=== PATIENT | female | born 1945 | race Caucasian/White ===

== ENCOUNTER 2017-08-31 17:30 | Inpatient (IN) | payer SELFPAY ==
[~2017-08-31] VITALS: Ht 157.5 cm; Wt 58.3 kg
[2017-08-31 19:21] LABS: BASOPHILS % 0.9 % (0.0-2.0); EOSINOPHILS % 8.7 % (0.0-5.0); HEMATOCRIT. 39.6 % (36.0-48.0); HEMOGLOBIN. 13.5 g/dL (12.0-16.0); LYMPHOCYTES % 36.4 % (20.0-50.0); MEAN CORPUSCULAR HEMOGLOBIN 30.1 pg (28.0-32.0); MEAN CORPUSCULAR VOLUME 88.4 fL (81.0-99.0); MEAN PLATELET VOLUME 7.5 fl (7.4-10.4); MONOCYTES % 6.7 % (2.0-8.0); NEUTROPHILS % 47.3 % (40.0-76.0); PLATELET 255 x1000/uL (130-400); RED BLOOD CELL COUNT 4.48 mill/uL (4.2-5.4); RED CELL DISTRIBUTION WIDTH 13.9 % (11.6-14.6)
[2017-08-31 19:27] LABS: PROTHROMBIN TIME 10.9 sec (9.4-11.6)
[2017-08-31 19:32] LABS: CHLORIDE 109 mEq/L (98-107)
[2017-08-31 19:36] LABS: TROPONIN I < 0.02 ng/mL (0.00-0.04)
[2017-08-31] MEDS ORDERED: ACETAMINOPHEN 325MG TABLET PO ONE (20:00)
[2017-08-31] MEDS ORDERED: ONDANSETRON HCL 4MG/2ML VIAL IV PRN (22:09)
[2017-08-31 22:16] LABS: CREATINE KINASE MB FRACTION 1.1 ng/mL (0.5-3.6)
[2017-08-31 23:14] VITALS: BP 119/71
[2017-08-31 23:15] VITALS: BP 119/71
[2017-08-31 23:34] VITALS: BP 124/66
[2017-08-31] MEDS: DEXT 5%/LACTATED RINGERS 1,000 ML IV SCH (23:44)
[2017-08-31 23:45] VITALS: BP 114/60
[2017-09-01] VITALS (51 sets, daily range): BP systolic 95–154; BP diastolic 42–80
[2017-09-01] MEDS ORDERED: NICARDIPINE 100 MG in SODIUM CHLORIDE 0.9% 60 ML IV PRN ×4
[2017-09-01 05:50] LABS: BASOPHILS % 1.2 % (0.0-2.0); EOSINOPHILS % 13.4 % (0.0-5.0); HEMATOCRIT. 38.2 % (36.0-48.0); HEMOGLOBIN. 12.9 g/dL (12.0-16.0); LYMPHOCYTES % 46.1 % (20.0-50.0); MEAN CORPUSCULAR HEMOGLOBIN 30.4 pg (28.0-32.0); MEAN CORPUSCULAR VOLUME 89.7 fL (81.0-99.0); MONOCYTES % 7.4 % (2.0-8.0); NEUTROPHILS % 31.9 % (40.0-76.0); PLATELET 260 x1000/uL (130-400); RED BLOOD CELL COUNT 4.26 mill/uL (4.2-5.4); RED CELL DISTRIBUTION WIDTH 13.7 % (11.6-14.6)
[2017-09-01 06:31] LABS: CREATINE KINASE 60 IU/L (26-192); CREATINE KINASE MB FRACTION 0.9 ng/mL (0.5-3.6); HDL CHOLESTEROL 45 mg/dL (40-59); LDL CHOLESTEROL 136 mg/dL (5-100); TROPONIN I < 0.02 ng/mL (0.00-0.04)
[2017-09-01] MEDS: SODIUM CHLORIDE 0.9% INJ 3ML FLUSH IVF SCH ×3 (07:01→22:21)
[2017-09-01] MEDS ORDERED: LORA10TA7 PO (08:49)
[2017-09-01] MEDS ORDERED: PROM6.25 PO (08:49)
[2017-09-01 08:55] LABS: CLARITY URINE CLOUDY (CLEAR); COLOR URINE YELLOW (YELLOW); KETONES URINE NEGATIVE (NEGATIVE); LEUKOCYTE ESTERASE URINE 1+ (NEGATIVE); NITRITE URINE NEGATIVE (NEGATIVE); OCCULT BLOOD URINE NEGATIVE (NEGATIVE); PH URINE 7.5 (4.5-8.0); PROTEIN URINE NEGATIVE (NEGATIVE); SPECIFIC GRAVITY URINE 1.015 (1.005-1.030); UROBILINOGEN URINE 0.2 E.U./dL (0.2-1.0)
[2017-09-01] MEDS ORDERED: IPRATROPIUM/ALBUTEROL 0.5-3(2.5)MG/3ML NEB HHN PRN (09:00)
[2017-09-01 10:09] LABS: *AMPHETAMINES SCREEN URINE NEGATIVE (NEGATIVE); *BARBITURATES SCREEN URINE NEGATIVE (NEGATIVE); *BENZODIAZEPINES SCREEN URINE NEGATIVE (NEGATIVE); *COCAINE SCREEN URINE NEGATIVE (NEGATIVE); CANNABINOID URINE SCREEN NEGATIVE (NEGATIVE); METHADONE URINE SCREEN NEGATIVE (NEGATIVE); OPIATES URINE SCREEN NEGATIVE (NEGATIVE); PHENCYCLIDINE URINE SCREEN NEGATIVE (NEGATIVE)
[2017-09-01] MEDS ORDERED: DEXTROSE 50% WATER 50ML SYRINGE IV PRN (12:45)
[2017-09-01 15:41] LABS: CREATINE KINASE 58 IU/L (26-192); CREATINE KINASE MB FRACTION 0.9 ng/mL (0.5-3.6); TROPONIN I < 0.02 ng/mL (0.00-0.04)
[2017-09-01 15:45] LABS: T4 FREE 0.96 ng/dL (0.76-1.46)
[2017-09-01] MEDS: BLOOD SUGAR DIAGNOSTIC STRIP TEST SCH ×2 (16:30→21:00)
[2017-09-01] MEDS: INSULIN LISPRO 100 UNITS/ML SUBCUT SCH ×3 (17:00→21:00)
[2017-09-01] MEDS ORDERED: ATORVASTATIN CALCIUM 10MG TABLET PO SCH (21:00)
[2017-09-01] MEDS: DEXT 5%/LACTATED RINGERS 1,000 ML IV SCH (22:10)
[2017-09-02] VITALS: BP 94/41
[2017-09-02 00:27] LABS: CREATINE KINASE 51 IU/L (26-192); CREATINE KINASE MB FRACTION 0.6 ng/mL (0.5-3.6); TROPONIN I < 0.02 ng/mL (0.00-0.04)
[2017-09-02 04:00] VITALS: BP 101/42
[2017-09-02] MEDS: SODIUM CHLORIDE 0.9% INJ 3ML FLUSH IVF SCH (07:33)
[2017-09-02] MEDS: BLOOD SUGAR DIAGNOSTIC STRIP TEST SCH ×2 (07:33→12:20)
[2017-09-02] MEDS: INSULIN LISPRO 100 UNITS/ML SUBCUT SCH ×2 (07:36→12:45)
[2017-09-02 07:40] LABS: CREATINE KINASE 50 IU/L (26-192); CREATINE KINASE MB FRACTION 0.8 ng/mL (0.5-3.6); TROPONIN I < 0.02 ng/mL (0.00-0.04)
[2017-09-02 08:00] VITALS: BP 121/63
[2017-09-02] MEDS: DEXT 5%/LACTATED RINGERS 1,000 ML IV SCH (08:01)
[2017-09-02 12:00] VITALS: BP 130/70
[2017-09-02 15:22] VITALS: BP 121/63
== END 2017-09-02 15:40 | disposition home or self-care (01) | DRG 44 ==
LOC: ER 18:00 → MICUSO 21:39 → EDBEDREQTM 21:42 → EDBEDREQ 21:42 → ENRESERV 21:55 → 6EST 09-01 17:50
PROVIDERS: ADMIT Family Medicine; ATTEND Family Medicine
DX: I61.4 Nontraumatic intracerebral hemorrhage in cerebellum (principal); E86.0 Dehydration; S09.90XA Unspecified injury of head, initial encounter; E78.00 Pure hypercholesterolemia, unspecified; E78.5 Hyperlipidemia, unspecified; I10 Essential (primary) hypertension; W19.XXXA Unspecified fall, initial encounter; Y93.89 Activity, other specified; Y92.89 Other specified places as the place of occurrence of the external cause; Y99.8 Other external cause status
CPT/HCPCS: 36415; 70450; 71045; 72070; 72220; 73090; 73130; 80053; 80061; 80305; 81001; 82550; 82553; 82962; 83036; 83880; 84439; 84443; 84484; 85025; 85379; 85610; 92610; 93005; 93306; 93880; 97162; 97166; 99291

== ENCOUNTER 2023-09-15 13:24 | Emergency (ER) | payer MEDICARE, MEDICAID ==
[~2023-09-15] VITALS: Ht 162.6 cm; Wt 56.0 kg
[~2023-09-15 13:24] MED LIST: LORA10TA7 PO; PROM6.2527 PO
[2023-09-15 13:29] VITALS: O2SAT 99
[2023-09-15] MEDS: KETOROLAC 60MG/2ML VIAL IM ONE (15:03)
[2023-09-15] MEDS: ACETAMINOPHEN 325MG TABLET PO ONE (15:04)
[2023-09-15] MEDS: CYCLOBENZAPRINE 10MG TABLET PO SCH (16:00)
[2023-09-15] MEDS: BACITRACIN ZINC OINT UDPKT TOP ONE (16:00)
[2023-09-15] MEDS: TETANUS, DIPHTHERIA, PERTUSSIS VAC/PF 0.5ML (>10YR OLD) IM ONE (16:20)
[2023-09-15] MEDS ORDERED: CYCL5TAB MT (16:30)
[2023-09-15] MEDS ORDERED: ACET-2708 MT (16:30)
[2023-09-15] MEDS ORDERED: NEOM28.37 TP (18:44)
[2023-09-15 19:59] VITALS: BP 134/68; PULSE 64; RESP 18; TEMP 98.9
== END 2023-09-15 20:01 | disposition home or self-care (01) ==
LOC: ER 13:54
DX: S81.812A Laceration without foreign body, left lower leg, initial encounter (principal); E11.9 Type 2 diabetes mellitus without complications; I10 Essential (primary) hypertension; X58.XXXA Exposure to other specified factors, initial encounter; Y93.89 Activity, other specified; Y92.89 Other specified places as the place of occurrence of the external cause; Y99.8 Other external cause status
CPT/HCPCS: 73560; 73590; 73600; 73700; 90715; 96372; 99285; J1885; Z7610